=== PATIENT | female | born 1940 | race Caucasian/White ===

== ENCOUNTER 2018-02-20 09:00 | Day surgery (SDC) | payer MEDICARE, OTHER ==
[~2018-02-20] VITALS: Ht 167.6 cm; Wt 65.8 kg
[~2018-02-20 09:00] MED LIST: ASPIR-LOW81 MG PO; CALCIUM 600+D31 EACH PO; ESTRACE42.5 GM VAGINAL; LISINOPRIL5 MG PO; METFORMIN HCL500 MG PO; MULTIVITAMINS1 EAC8 PO; MYRBETRIQ50 MG PO; TROSPIUM CHLORI60 MG PO; VICTOZA 3-0.6 MG/0.1 SUB-Q; VITAMIN B122500 MCG PO
--- NOTE | 2018-02-20 12:49 | NUR ---
02/20/18 1249 Sarah Frausto 1220 PT ARRIVED IN PACU AWAKE WITH NO C/O'S. 1230 OM REMOVED. SATS 93% ON RA. PT SIPPING ON WATER. BLOOD SUGAR 133 ON ARRIVAL. RX CALLED TO [facility] SRINIVASAN IN [place]. 1245 UP TO BATHROOM. VOIDED.
--- NOTE | 2018-02-23 16:05 | OR ---
[facility] [address] [place], [place] [address] Signed DATE OF OPERATION: 02/20/2018 SURGEON: Judy Crane MD PREOPERATIVE DIAGNOSIS: Severe overactive bladder with failure to respond to oral anticholinergic agents. POSTOPERATIVE DIAGNOSIS: Severe overactive bladder with failure to respond to oral anticholinergic agents. PROCEDURES: 1. Diagnostic cystoscopy. 2. Botox bladder injection, 100 units. ANESTHESIA: MAC. ESTIMATED BLOOD LOSS: None. COMPLICATIONS: None. SPECIMENS: None. DRAINS: None. INDICATIONS FOR PROCEDURE: Ms. Brice is a very pleasant 77-year-old female who is well known to me. She has a longstanding history of severe overactive bladder and has tried multiple oral medications with only minimum improvement in her symptoms. She is currently taking trospium chloride and Myrbetriq in combination therapy and is only experiencing about 25% improvement in her symptoms. After a long discussion of the risks and benefits of Botox bladder injection, the patient has elected to undergo the procedure for more definitive treatment of her severe overactive bladder. OPERATIVE FINDINGS: On cystoscopy, there was no evidence of any suspicious masses, lesions, or stones within Electronically Signed By: JUDY CRANE MD 02/23/18 1605 PATIENT NAME: PHONG BRICE OPERATIVE REPORT DATE OF : 38 REPORT #: [id number] PHYSICIAN: JUDY CRANE MD PCP: JASON GASTON MD REPORT IS CONFIDENTIAL AND NOT TO BE RELEASED WITHOUT AUTHORIZATION [facility] [address] [place] [address] [place] [address] Signed the bladder. Bilateral ureteral orifices are in their normal anatomic location and effluxing clear urine. A total of 100 units of Botox was injected into the patient's bladder without complication. Total of 10 mL solution was injected in 0.5 mL aliquots throughout the bladder, avoiding the dome and trigone areas. This was performed without complication. DESCRIPTION OF PROCEDURE: After informed consent was obtained, the patient was taken back to the operating room. She was transferred from [facility] to the operating room table, where MAC anesthesia was induced. She was placed in the dorsal lithotomy position and her genitalia prepped and draped in a standard sterile fashion. Using a 30-degree lens on a 22-1/2-Indonesian introducer, rigid cystoscope was inserted through the urethra into the bladder under direct visualization. Panendoscopic views of the bladder were then obtained. Please see above findings. The patient's bladder was then irrigated with sterile water prior to injection. The injecting device was advanced into the bladder and the needle was set at 3 mm. I then injected a total of 10 mL of reconstituted botulinum toxin, at 0.5 mL at a time. The injections were placed mostly in the posterior lateral hendrix of the bladder, avoiding the dome and trigone areas. The procedure was performed without difficulty. At the end of the procedure, the patient's bladder was irrigated again and then drained completely. The procedure was then terminated. The patient tolerated the procedure well without any complication. She will now be transferred to the postanesthesia care unit in stable condition. DISPOSITION: Ms. Brice will be discharged to home later today in stable condition. She was given Macrobid 100 mg p.o. b.i.d. for a total of 7 days. She will be scheduled to return to clinic in approximately six weeks to undergo her first postoperative visit. I have instructed her today to stop both her trospium chloride and Myrbetriq in the next couple of days or so. Judy Crane MD AR/MODL /[id number] Electronically Signed By: JUDY CRANE MD 02/23/18 1605 PATIENT NAME: PHONG BRICE OPERATIVE REPORT DATE OF : 38 REPORT #: [id number] PHYSICIAN: JUDY CRANE MD PCP: JASON GASTON MD REPORT IS CONFIDENTIAL AND NOT TO BE RELEASED WITHOUT AUTHORIZATION [address] [address] Signed Copies: ~ Electronically Signed By: JUDY CRANE MD 02/23/18 1605 PATIENT NAME: PHONG BRICE OPERATIVE REPORT DATE OF : 38 REPORT #: [id number] PHYSICIAN: JUDY CRANE MD PCP: JASON GASTON MD REPORT IS CONFIDENTIAL AND NOT TO BE RELEASED WITHOUT AUTHORIZATION
== END 2018-02-20 12:50 | disposition home or self-care (01) ==
LOC: DS 09:00 → OPS 09:00
PROVIDERS: Urology
PROC: 3E0K8GC Introduction of Other Therapeutic Substance into Genitourinary Tract, Via Natural or Artificial Opening Endoscopic (ICD-10-PCS; principal; 2018-02-20 09:30)
DX: N32.81 Overactive bladder (principal); E11.9 Type 2 diabetes mellitus without complications; M81.0 Age-related osteoporosis without current pathological fracture; Z88.5 Allergy status to narcotic agent; Z79.899 Other long term (current) drug therapy; Z79.84 Long term (current) use of oral hypoglycemic drugs
CPT/HCPCS: 00910; J0585; J0696; J2405; J2704; J3010; J7120

== ENCOUNTER 2024-05-14 05:51 | Day surgery (SDC) | payer MEDICARE, OTHER ==
[2024-05-08 16:32] VITALS: BP 124/74
[~2024-05-14] VITALS: Ht 170.2 cm; Wt 65.9 kg
[~2024-05-14 05:51] MED LIST changes: +DULOXETINE HCL60 MG PO; +FARXIGA10 MG PO; +FLOMAX0.4 MG PO; +FLUOXETINE HCL20 MG PO; +GEMTESA75 MG PO; +LACTATED RINGER'S 1,000 ML IV SCH; +MAGNESIUM400 MG PO; +OXYBUTYNIN CHLO15 MG PO; +OZEMPIC1 MG/0.71; +OZEMPIC2 MG/0.75 SUB-Q; +PROLIA60 MG/1 ML SUB-Q; +VIT C-ECHINACE1 EACH PO; +VITAMIN A3000 MCG PO; -VITAMIN B122500 MCG PO; +VITAMIN B650 MG PO; +VITAMIN E400 UNI1 PO; +VITAMIN E400 UNI5 PO
[2024-05-14] MEDS ORDERED: fentaNYL citrate 100 MCG/2 ML VIAL ONE (06:39)
[2024-05-14] MEDS ORDERED: KETOROLAC TROMETHAMINE 30 MG/ML VIAL ONE (06:39)
[2024-05-14] MEDS ORDERED: LACTATED RINGER'S 1,000 ML IV ONE (06:39)
[2024-05-14] MEDS ORDERED: DEXAMETHASONE SOD PHOS 4 MG/ML VIAL ONE (06:39)
[2024-05-14] MEDS ORDERED: FAMOTIDINE 20 MG/ 2 ML VIAL ONE (06:39)
[2024-05-14] MEDS ORDERED: propofoL 200 MG/20 ML VIAL ONE (06:39)
[2024-05-14] MEDS ORDERED: ondansetron HCL 4 MG/2 ML VIAL ONE (06:39)
[2024-05-14 06:45] VITALS: BP 126/72
[2024-05-14] MEDS ORDERED: VITAMIN D325 MCG PO (06:52)
[2024-05-14] MEDS ORDERED: FARXIGA10 MG PO (06:53)
[2024-05-14] MEDS ORDERED: GEMTESA75 MG PO (06:53)
[2024-05-14] MEDS ORDERED: ESTRADIOL42.5 GM VAGINAL (06:55)
[2024-05-14] MEDS ORDERED: IBLOOD GLUCOSE TEST STRIP 1 EA TEST VI PRN ×2 (07:00→08:30)
[2024-05-14] MEDS ORDERED: LIDOCAINE HCL 1% 5 ML SDV INJ ONE (07:00)
[2024-05-14] MEDS ORDERED: CEFAZOLIN SODIUM 2 GM/20 ML SYR IV SCH (07:00)
--- NOTE | 2024-05-14 07:40 | NUR ---
PT NOT AVAILABLE FOR VISIT. PROVIDED PRAYER.
[2024-05-14] MEDS ORDERED: OXYCODONE/APAP 5/325 TAB PO PRN (07:45)
[2024-05-14] MEDS ORDERED: ondansetron HCL 4 MG TAB PO PRN (07:45)
[2024-05-14] MEDS ORDERED: ondansetron HCL 4 MG/2 ML VIAL IV PRN ×2 (07:45→08:30)
[2024-05-14] MEDS ORDERED: MORPHINE SULFATE 4 MG/ML VIAL IV PRN (07:45)
[2024-05-14] MEDS ORDERED: NALOXONE HCL 0.4 MG SYR IV PRN (08:30)
[2024-05-14] MEDS ORDERED: METOCLOPRAMIDE HCL 10 MG/2 ML SDV IV PRN (08:30)
[2024-05-14] MEDS ORDERED: droPERidol 5 MG/2 ML VIAL IV PRN (08:30)
[2024-05-14] MEDS ORDERED: PROCHLORPERAZINE EDISYLATE 10 MG/2 ML VIAL IV PRN (08:30)
[2024-05-14] MEDS ORDERED: fentaNYL citrate 50 MCG/ML SDV IV PRN (08:30)
[2024-05-14] MEDS ORDERED: MORPHINE SULFATE 10 MG/ML VIAL IV PRN (08:30)
[2024-05-14 10:49] VITALS: BP 111/54
--- NOTE | 2024-05-14 11:01 | NUR ---
05/14/24 1101 Sarah Frausto 1000 PT ARRIVED IN PACU SLEEPY. BLOOD SUGAR 178. 1015 PT AWAKENS, THEN FALLS BACK TO SLEEP. 1030 C/O URGE TO VOID. UP TO BATHROOM. VOIDED. BACK AT BEDSIDE WAITING FOR [employer] REP TO COME SEE THEM. 1035 WARM BLANKET GIVEN AND SIPPING ON WATER. 1040 [employer] REP AT BEDSIDE DOING BEDSIDE TEACHING WITH PT.
--- NOTE | 2024-05-15 12:13 | EKG ---
[facility] [address] [facility] [place], [place] [address] Signed Sinus rhythm with marked sinus arrhythmia Otherwise normal ECG When compared with ECG of 05-OCT-2017 08:40, No significant change was found Confirmed by Fortino Beauchamp DO ([id number]) on 05/15/2024 12:13:26 PM Electronically Signed By: FORTINO BEAUCHAMP DO 05/15/24 1213 PATIENT NAME: PINKY TANGKRYSTAL PIÑA Electrocardiogram DATE OF : 38 PHYSICIAN: FORTINO BEAUCHAMP DO REPORT #: [id number] REPORT IS CONFIDENTIAL AND NOT TO BE RELEASED WITHOUT AUTHORIZATION
== END 2024-05-14 11:16 | disposition home or self-care (01) ==
LOC: DS 05:51 → OPS 05:51 → DS 07:30 → OPS 11:16
PROVIDERS: ATTEND Urology
PROC: 01HY3MZ Insertion of Neurostimulator Lead into Peripheral Nerve, Percutaneous Approach (ICD-10-PCS; principal; 2024-05-14 07:30)
DX: N32.81 Overactive bladder (principal); N39.42 Incontinence without sensory awareness; R32 Unspecified urinary incontinence; E11.9 Type 2 diabetes mellitus without complications; I10 Essential (primary) hypertension; E78.00 Pure hypercholesterolemia, unspecified; M81.0 Age-related osteoporosis without current pathological fracture; Z79.84 Long term (current) use of oral hypoglycemic drugs; Z79.899 Other long term (current) drug therapy; Z88.5 Allergy status to narcotic agent
CPT/HCPCS: 00300; 76000; C1778; C1889; C1897; J0690; J1100; J1885; J2405; J2704; J3010; J7121

== ENCOUNTER 2024-05-28 05:45 | Day surgery (SDC) | payer MEDICARE, OTHER ==
[~2024-05-28] VITALS: Ht 170.2 cm; Wt 65.3 kg
[~2024-05-28 05:45] MED LIST changes: +ESTRADIOL42.5 GM VAGINAL; +VITAMIN D325 MCG PO
[2024-05-28 06:21] VITALS: BP 132/79
[2024-05-28] MEDS ORDERED: CEFAZOLIN SODIUM 2 GM/20 ML SYR IV SCH (07:00)
[2024-05-28] MEDS ORDERED: LIDOCAINE HCL 1% 5 ML SDV INJ ONE (07:00)
[2024-05-28] MEDS ORDERED: IBLOOD GLUCOSE TEST STRIP 1 EA TEST VI PRN ×2 (07:00→08:15)
[2024-05-28] MEDS ORDERED: ondansetron HCL 4 MG/2 ML VIAL ONE (07:19)
[2024-05-28] MEDS ORDERED: ACETAMINOPHEN 1,000 MG/100 ML VIAL ONE (07:19)
[2024-05-28] MEDS ORDERED: propofoL 200 MG/20 ML VIAL ONE (07:19)
[2024-05-28] MEDS ORDERED: LIDOCAINE HCL 2% 5 ML SDV ONE (07:19)
[2024-05-28] MEDS ORDERED: DEXAMETHASONE SOD PHOS 4 MG/ML VIAL ONE (07:19)
[2024-05-28] MEDS ORDERED: FAMOTIDINE 20 MG/ 2 ML VIAL ONE (07:20)
[2024-05-28] MEDS ORDERED: fentaNYL citrate 100 MCG/2 ML VIAL ONE (07:20)
--- NOTE | 2024-05-28 07:24 | NUR ---
PT NOT AVAILABLE FOR VISIT. PROVIDED PRAYER.
[2024-05-28] MEDS ORDERED: NALOXONE HCL 0.4 MG SYR IV PRN (08:15)
[2024-05-28] MEDS ORDERED: ondansetron HCL 4 MG/2 ML VIAL IV PRN ×2 (08:15→09:00)
[2024-05-28] MEDS ORDERED: fentaNYL citrate 50 MCG/ML SDV IV PRN (08:15)
[2024-05-28] MEDS ORDERED: droPERidol 5 MG/2 ML VIAL IV PRN (08:15)
[2024-05-28] MEDS ORDERED: PROCHLORPERAZINE EDISYLATE 10 MG/2 ML VIAL IV PRN (08:15)
[2024-05-28 08:53] VITALS: BP 128/75
--- NOTE | 2024-05-28 08:59 | NUR ---
05/28/24 0859 Sarah Frausto 0830 PT ARRIVED IN PACU SLEEPY. 0840 PT AWAKE AND TALKING TO STAFF. SIPPING ON WATER. 0855 [employer] REP AT BEDSIDE WORKING WITH PT.
[2024-05-28] MEDS ORDERED: MORPHINE SULFATE 4 MG/ML VIAL IV PRN (09:00)
== END 2024-05-28 09:15 | disposition home or self-care (01) ==
LOC: OPS 05:45 → DS 05:45 → OPS 07:30 → DS 07:30 → OPS 09:15
PROVIDERS: ATTEND Urology
PROC: 0JH70MZ Insertion of Stimulator Generator into Back Subcutaneous Tissue and Fascia, Open Approach (ICD-10-PCS; principal; 2024-05-28 07:30)
DX: N32.81 Overactive bladder (principal); E11.9 Type 2 diabetes mellitus without complications; E78.00 Pure hypercholesterolemia, unspecified; I10 Essential (primary) hypertension; M81.0 Age-related osteoporosis without current pathological fracture; Z79.84 Long term (current) use of oral hypoglycemic drugs; Z79.899 Other long term (current) drug therapy; Z88.8 Allergy status to other drugs, medicaments and biological substances
CPT/HCPCS: 00840; C1767; C1787; J0131; J0690; J1100; J2003; J2405; J2704; J3010; J7121

== ENCOUNTER 2024-12-22 10:33 | Emergency (ER) | payer MEDICARE, OTHER ==
[~2024-12-22] VITALS: Ht 170.2 cm; Wt 63.2 kg
[~2024-12-22 10:33] MED LIST changes: -LACTATED RINGER'S 1,000 ML IV SCH
[2024-12-22 15:12] LABS: BASOPHILS 0.4 % (0.1-1.2); BLOOD/HGB, URINE NEGATIVE (Negative); EOSINOPHILS 2.5 % (0.7-5.8); KETONE, URINE NEGATIVE (Negative); LEUK ESTERASE, URINE NEGATIVE (negative); LYMPHOCYTES 31.0 % (19.3-51.7); MCH 29.6 PG (25.6-32.2); MCHC 31.9 g/dL (32.2-35.5); MCV 92.5 fL (79.4-94.8); MONOCYTES 7.2 % (4.7-12.5); NEUTROPHILS 58.8 % (34.0-71.1); NITRITE, URINE NEGATIVE (negative); RBC 4.67 M/uL (3.93-5.22)
[2024-12-22 15:30] LABS: ALT (SGPT) 27.0 U/L (14-59); AST (SGOT) 17.0 U/L (15-37); GLOMERULAR FILTRATION RATE,EST 81.0 mL/min (>60); PROTEIN, TOTAL 7.5 g/dL (6.4-8.2); UREA NITROGEN 14.0 mg/dL (7-18)
[2024-12-22 15:57] VITALS: BP 128/72
== END 2024-12-22 15:57 | disposition home or self-care (01) ==
LOC: ED 10:33
PROVIDERS: Emergency Medicine
DX: R19.8 Other specified symptoms and signs involving the digestive system and abdomen (principal)
CPT/HCPCS: 36415; 80053; 81003; 83690; 85025; 99284